=== PATIENT | male | born 1975 | race Caucasian/White ===

== ENCOUNTER 2024-05-10 17:48 | Emergency (ER) | payer SELFPAY ==
[~2024-05-10] VITALS: Ht 172.7 cm; Wt 79.0 kg
[2024-05-10 17:56] VITALS: BP 131/99; PULSE 84; TEMP 98.3; O2SAT 99
[2024-05-10 20:00] VITALS: RESP 17
== END 2024-05-10 20:04 | disposition home or self-care (01) ==
LOC: ER 17:48
DX: M79.10 Myalgia, unspecified site (principal); Y08.89XA Assault by other specified means, initial encounter; Y93.89 Activity, other specified; Y92.89 Other specified places as the place of occurrence of the external cause; Y99.8 Other external cause status
CPT/HCPCS: 99283